=== PATIENT | female | born 1980 | race Two or more races ===

== ENCOUNTER 2021-04-12 21:19 | Emergency (ER) | payer OTHER, SELFPAY ==
[~2021-04-12] VITALS: Ht 162.6 cm; Wt 84.5 kg
[2021-04-12] MEDS ORDERED: fentaNYL 100 MCG/2 ML INJECTION IV ONE (21:35)
[2021-04-12] MEDS ORDERED: diazePAM 10MG/2ML SYRINGE (J3360 PER 5MG) IV ONE (23:10)
[2021-04-13] MEDS ORDERED: OXYCODONE/APAP 5MG/325MG(BULK FOR ED) 1 TABLET PO ONE
[2021-04-13] MEDS ORDERED: PERC5TAB12 PO (00:06)
[2021-04-13] MEDS ORDERED: METH-1165 PO (00:07)
[2021-04-13 00:30] VITALS: BP 137/90
== END 2021-04-13 01:15 | disposition home or self-care (01) ==
LOC: M ED 21:19
DX: S76.011A Strain of muscle, fascia and tendon of right hip, initial encounter (principal); S39.012A Strain of muscle, fascia and tendon of lower back, initial encounter; W18.39XA Other fall on same level, initial encounter; Y92.511 Restaurant or cafe as the place of occurrence of the external cause
CPT/HCPCS: 73502; 73552; 73564; 96374; 96375; 99284; J3010; J3360